=== PATIENT | female | born 1945 | race Caucasian/White ===

== ENCOUNTER 2021-09-18 07:25 | Day surgery (SDC) | payer MEDICARE, OTHER, SELFPAY ==
--- NOTE | 2021-09-18 06:51 | HPE_ITS ---
Assessment and Plan Assessment and plan (1) Nuclear sclerotic cataract of left eye: Status: Chronic Assessment and plan: Assessment: Visually significant cataract of the left eye. Plan: Cataract extraction with lens implantation of the left eye (2) Nuclear sclerotic cataract of right eye: Status: Chronic Assessment and plan: Assessment: Visually significant cataract of the right eye. Plan: Cataract extraction with lens implantation of the right eye History of Present Illness History of Present Illness Chief Complaint: Progressive decreased vision, both eyes Narrative: The patient is a 75-year-old lady with history of progressive decreased vision in both eyes at both distance and near. She particularly has difficulty with glare while driving at night. She notes difficulty seeing distances clearly. S he has had to stop driving due to her glare symptoms. On examination she was noted to have significant bilateral nuclear cataracts. Review of Systems All systems reviewed & are unremarkable except as noted in HPI and below Respiratory Comments: COPD/lung CA, on oxygen PFSH All Active Problems (Updated 09/18/21 @ 07:59 by Shahana Schmidt) Nuclear sclerotic cataract of left eye (Chronic) Nuclear sclerotic cataract of right eye (Chronic) Medical History Anemia Benign hypertension COPD (chronic obstructive pulmonary disease) Hypothyroidism Leg weakness Lung cancer 3.5-4L O2 Malignant neoplasm of lower lobe of left lung Seasonal allergies Surgical History (Updated 09/18/21 @ 07:59 by Shahana Schmidt) History of partial hysterectomy Hx of breast lump removal [place] [facility] [place] Hx of melanoma excision in mouth removed approx 2019 Hx of tonsillectomy Social History Smoking/Tobacco Use Status: Current every day Tobacco Type: cigarettes Tobacco: How many years used: 40 Smoking risk assessment performed?: Yes Alcohol Intake: never Drug use: Never Substance use type: does not use Do you feel safe at home: Yes Do you feel safe in your relationship?: Yes Additional Social history: lives with daughter Meds Allergies and Home Medications Allergies Allergy/AdvReac Type Severity Reaction Status Date / Time No Known Allergies Allergy Unverified 09/18/21 07:59 Home Medications Medication Instructions Recorded Confirmed Type albuterol 90 mcg/actuation aerosol 90 mcg inhalation DIRECTED 09/17/21 09/18/21 History inhaler aspirin 81 mg capsule,delayed 81 mg PO DAILY 09/17/21 09/18/21 History release clopidogrel 75 mg tablet (Plavix) 75 mg PO DAILY 09/17/21 09/18/21 History diphenhydramine HCl 25 mg tablet 25 mg PO DAILY PRN 09/17/21 09/18/21 History ferrous sulfate 325 mg (65 mg 325 mg PO BID 09/17/21 09/18/21 History iron) tablet fluticasone propionate 115 2 puff inhalation DAILY 09/17/21 09/18/21 History mcg-salmeterol 21 mcg/actuation HFA inhaler (Advair HFA) gabapentin 100 mg tablet 100 mg PO DIRECTED 09/17/21 09/18/21 History levothyroxine 112 mcg tablet 112 mcg PO DAILY 09/17/21 09/18/21 History montelukast 10 mg tablet 10 mg PO DAILY 09/17/21 09/18/21 History pantoprazole 40 mg tablet,delayed 40 mg PO DAILY 09/17/21 09/18/21 History release tiotropium bromide 2.5 2.5 mcg inhalation DAILY 09/17/21 09/17/21 History mcg/actuation mist for inhalation (Spiriva Respimat) atorvastatin 20 mg tablet 20 mg PO DAILY 09/18/21 09/18/21 History Exam Eyes Other: Uncorrected visual acuity measures 20/150 right eye, pinhole no improvement. 20/70 left eye, pinhole no improvement. Intraocular pressures 13 right eye, 10 left eye. Extraocular motility is normal. Slit-lamp examination reveals pupils dilating only to 4.5 mm OU. Dense bilateral nuclear cataract are present OU. The remainder of the anterior segment is unremarkable. Funduscopic examination reveals disc cupping of 0.4-0.45 OU. Vessels, macula, peripheral retina and vitreous are normal. Resp Auscultation: clear to auscultation bilaterally Cardio Rate: regular rate Rhythm: regular rhythm
[2021-09-18] MEDS: Tropicam./Phenyleph. (1/2.5%) 5 ML BTL OD ×3 (08:09→08:24)
[2021-09-18 08:11] VITALS: BP 125/59; PULSE 88; RESP 13; TEMP 36.6; O2SAT 96
--- NOTE | 2021-09-18 08:30 | W.ANESPRE ---
General Info Date of Service Date Performed: 09/18/21 Height: 5 ft 1 in Weight: 66.7 kg Body Mass Index (BMI): 27.8 Surgical Procedure: Operation Date: 09/18/21 09:40 Proposed Procedure Side Surgeon p Cataract Extraction with IOL Implant Right Paras Matute MD Meds Allergies and Home Medications Allergies Allergy/AdvReac Type Severity Reaction Status Date / Time No Known Allergies Allergy Unverified 09/18/21 07:59 Home Medication Medication Instructions Recorded albuterol 90 mcg/actuation aerosol 90 mcg inhalation DIRECTED 09/17/21 inhaler aspirin 81 mg capsule,delayed 81 mg PO DAILY 09/17/21 release clopidogrel 75 mg tablet (Plavix) 75 mg PO DAILY 09/17/21 diphenhydramine HCl 25 mg tablet 25 mg PO DAILY PRN 09/17/21 ferrous sulfate 325 mg (65 mg 325 mg PO BID 09/17/21 iron) tablet fluticasone propionate 115 2 puff inhalation DAILY 09/17/21 mcg-salmeterol 21 mcg/actuation HFA inhaler (Advair HFA) gabapentin 100 mg tablet 100 mg PO DIRECTED 09/17/21 levothyroxine 112 mcg tablet 112 mcg PO DAILY 09/17/21 montelukast 10 mg tablet 10 mg PO DAILY 09/17/21 pantoprazole 40 mg tablet,delayed 40 mg PO DAILY 09/17/21 release tiotropium bromide 2.5 2.5 mcg inhalation DAILY 09/17/21 mcg/actuation mist for inhalation (Spiriva Respimat) atorvastatin 20 mg tablet 20 mg PO DAILY 09/18/21 Current Visit Medications: Current Medications Generic Name Dose Route Start Last Admin Trade Name Freq PRN Reason Stop Dose Admin Acetaminophen 1,000 mg 09/18/21 06:00 Acetaminophen 500 Mg Tab PO Q4H PRN PRN Miscellaneous Medication 0 ml 09/18/21 06:00 Prednisolone 1%, Moxifloxacin 0.5%, Nepafenac 0.1% 5ml Btl OD DIRECTED BRYCE Miscellaneous Medication 0 ml 09/18/21 06:00 09/18/21 08:24 Tropicam./Phenyleph. (1/2.5%) 5 Ml Btl OD 1 drp DIRECTED BRYCE Administration Tetracaine HCl 0 ml 09/18/21 06:00 Tetracaine 0.5% 4 Ml Btl OD DIRECTED [facility] Active Problems Active Problems: Problem Status Onset Code Nuclear sclerotic cataract of left eye H25.12 Nuclear sclerotic cataract of right eye H25.11 Medical History Medical History Anemia Benign hypertension COPD (chronic obstructive pulmonary disease) Hypothyroidism Leg weakness Lung cancer 3.5-4L O2 Malignant neoplasm of lower lobe of left lung Seasonal allergies Surgical History Surgical History (Updated 09/18/21 @ 07:59 by Shahana Schmidt) History of partial hysterectomy [place]x of breast lump removal [place] [facility] [place] Hx of melanoma excision in mouth removed approx 2019 Hx of tonsillectomy Tobacco Smoking/Tobacco Use Status: Current every day Tobacco Type: cigarettes Alcohol Alcohol Intake: never Substance Use Substance use: Never Substance use type: does not use Vital Signs and Lab Results Vital Signs Most Recent Vital Signs in EMR: Most Recent Vital Signs Temp Pulse Resp BP Pulse Ox 36.6 C 88 13 125/59 L 96 09/18/21 08:11 09/18/21 08:11 09/18/21 08:11 09/18/21 08:11 09/18/21 08:11 Lab Results Blood Type / Crossmatch: No Data to Display Complete Blood Count: No Data to Display Complete Metabolic Panel: No Data to Display Liver Function Panel: No Data to Display Coagulation Panel: No Data to Display Cardiac Panel: No Data to Display Arterial Blood Gas: No Data to Display Venous Blood Gas: No Data to Display Pancreas Panel: No Data to Display Thyroid Panel: No Data to Display Infectious Disease: No Data to Display Blood Cultures: No Data to Display Toxicology Panel: No Data to Display Anesthesia Assessment and Plan Anesthesia History Personal History: No History of Anesthesia Complications Family History: No Family History of Anesthesia Complications Exercise Tolerance Exercise Tolerance: Metabolic Equivalents>4 Pertinent Negatives Pertinent Negatives: No Symptoms of GERD Cardiac & Pulmonary Exam Cardiac Exam: Normal S1/S2 Heart Sounds Pulmonary Exam: Other (O2 dependent, Diminished) Implantable Cardiac Device Does patient have a Pacemaker or an ICD?: No Airway Exam Known Difficult Airway: No Mallampati Class: 2 Mouth Opening: Normal (> 3cm) Thyromental Distance: Greater than 3 cm Neck Range of Motion: Full ROM Neck Circumference: Normal Teeth Condition: Edentulous ASA Classification ASA Score: ASA 4 Emergency Case?: No NPO Status NPO Status: NPO Clears >2 hours, Solids >8 hours Anesthesia Plan Resuscitation Status: Full Code Anesthesia Technique: MAC Anesthesia Airway Planned: Natural Airway Monitors Used: Standard Monitors
[2021-09-18 08:52] VITALS: BMI 27.8
[2021-09-18] MEDS: Tetracaine 0.5% 4 ML BTL OD (08:56)
[2021-09-18] MEDS: Trypan Blue 0.06% 0.5 ML SYR (09:10)
[2021-09-18] MEDS: Duovisc Viscoelastic System EACH 1 EACH (09:11)
[2021-09-18] MEDS: Balanced Salt Soln.-PLUS 500 ML BAG (09:11)
[2021-09-18] MEDS: Lidocaine 2% Jelly 6 ML SYR (09:13)
[2021-09-18] MEDS: Povidone-Iodine Ophth 30 ML BTL (09:16)
[2021-09-18 09:47] VITALS: BP 98/85; PULSE 85; RESP 20; TEMP 36; O2SAT 100
--- NOTE | 2021-09-18 09:49 | W.PM.DSUDISC ---
Discharge Plan Disposition Patient Disposition: HOME Condition: Good Discharge Details Attending Provider: Paras Matute Primary Care Provider: Jonah Prakash Home Meds and New Rx's Prescriptions: No Action clopidogrel [Plavix] 75 mg Tablet 75 mg PO DAILY aspirin 81 mg Capsule,Delayed Release(Dr/Ec) 81 mg PO DAILY pantoprazole 40 mg Tablet,Delayed Release (Dr/Ec) 40 mg PO DAILY ferrous sulfate 325 mg (65 mg iron) Tablet 325 mg PO BID diphenhydramine HCl 25 mg Tablet 25 mg PO DAILY PRN montelukast 10 mg Tablet 10 mg PO DAILY levothyroxine 112 mcg Tablet 112 mcg PO DAILY gabapentin 100 mg Tablet 100 mg PO DIRECTED Advair HFA 115-21 mcg/actuation Hfa Aerosol Inhaler 2 puff INHALATION DAILY Spiriva Respimat 2.5 mcg/actuation Mist 2.5 mcg INHALATION DAILY Ventolin 90 mcg/actuation Aerosol 90 mcg INHALATION DIRECTED atorvastatin 20 mg Tablet 20 mg PO DAILY Discharge Instructions Stand Alone Forms: Post-op Topical Cataract, Cyndy Segura (DSU) Discharge Orders Discharge Orders: Discharge Order (Routine); Ordered 09/18/21 Ordered By: Paras Matute DS: Diagnosis Discharge Diagnosis (1) Nuclear sclerotic cataract of left eye: Status: Resolved
--- NOTE | 2021-09-18 09:50 | ROE_ITS ---
Date of service: 09/18/21 Time of Service: 09:50 Operative Note Operative Note DATE OF PROCEDURE: 09/18/21 PRE-OP DIAGNOSIS: Dense nuclear cataract, left eye Poor red reflex, left eye Poorly dilating pupil left eye PROCEDURE: Cataract extraction using phacoemulsification with intraocular lens implant, left eye, with pupillary dilation using Malyugin Ring and capsular staining using Vision Blue SURGEON: Paras Matute ANESTHESIA TYPE: Local By Surgeon and MAC Refer to Anesthesia Record ESTIMATED BLOOD LOSS: 0 PATHOLOGY: none sent COMPLICATIONS: None Patient was transported to: same day Patient's condition: stable Implants: [employer] / [employer] Tecnis [id number] Indications: Progressive decreased vision due to cataract, left eye Procedure Description: CATARACT SURGERY OPERATIVE REPORT PREOPERATIVE DIAGNOSIS: 1. Dense nuclear cataract, left eye 2. Poorly dilating pupil, left eye 3. Poor red reflex, left eye POSTOPERATIVE DIAGNOSIS: Same OPERATION: 1. Cataract extraction using phacoemulsification with posterior chamber intraocular lens implant, left eye. 2. Pupillary dilation and iris stabilization using Malyugin Ring 3. Capsular staining with VIsion Blue IOL: IOL Lockstitch Front Edge Tape Sewer/Model: [employer] / DARIO Tecnis [id number] IOL Power: + 22.5 diopters IOL Serial Number: [id number] Optic Diameter: 6.0mm Haptic/Overall Diameter: 13.0mm PHACO INFO: Ravinder INWEBTURE Limitedurion Vision System with OZil and Active Fluidics Cumulative Dispersed Energy (CDE): 29.5 seconds SURGEON: Paras Matute MD, MILADY ANESTHESIA: Monitored Anesthesia Care (MAC), with local sub-tenon's anesthetic infiltration COMPLICATIONS: None SPECIMENS: None INDICATIONS FOR PROCEDURE: The patient is a 76-year-old lady with history of diminished visual acuity in both eyes secondary to the development of cataracts. Indeed, on examination, she was noted to have dense bilateral nuclear cataracts, right eye worse than left. The option of cataract surgery was offered to the patient and she wished to proceed, and desired to have her left eye done first. PROCEDURE: The correct surgical eye was identified and marked as the left eye and the pupil was dilated in the preoperative area using mydriatics, cycloplegics, and NSAIDS (except in aspirin allergic patients). The dilated pupil size was 4.0 mm. She elected to proceed without sedation. The patient was brought to the operating room where cardiopulmonary monitoring was instituted and surgical time-out was performed, confirming the correct operative eye and IOL power. Topical anesthesia was administered and ophthalmic povidone-iodine 5% was instilled into the conjunctival fornices. Lidocaine gel was applied to the cornea and the jordan-ocular area was prepped with Betadine 10% solution and draped in the usual sterile fashion for intraocular surgery, including an aperture drape. A Tegaderm transparent film dressing was cut in half and used to cover the lashes and lid margins. Care was taken to sequester the lashes and lid margins under the Tegaderm dressing. A lid speculum was placed between the lids of the operative eye and the Maryjane-Margo operating microscope was maneuvered into position. Jesús scissors were then used to make a conjunctival buttonhole approximately 6mm posterior to the limbus in the inferonasal quadrant. Blunt dissection was carried out to expose bare sclera, and a blunt-tipped sub-tenon?s anesthesia cannula was introduced and passed posteriorly along the globe where non- preserved plain lidocaine was injected into posterior sub-Tenon?s space. A sideport knife was used to make a paracentesis port superiorly/sup eriortemporally. Intraocular phenylephrine/lidocaine was injected into the anterior chamber. Air was then injected into anterior chamber, followed by Vision Blue, which was painted over the anterior capsule and then irrigated out with BSS. The anterior chamber was then filled with Viscoat viscoelastic. A 2.4mm keratome knife was used to create a half-thickness groove at the limbus and then to construct a three-plane near-clear corneal tunnel extending 2.0mm into clear cornea temporally. A 7.0 mm Malyugin Ring was then inserted into the pupillary space and engaged with the Kuglen hook. A flap was raised on the anterior capsule and capsulorhexis forceps were used to complete a continuous curvilinear capsulorhexis of 5.0 mm. Significant zonular laxity was noted. Balanced salt solution was then used to perform cortical cleaving hydrodissection and nuclear hydrodelineation until the lens could be freely rotated within the capsular bag. The lens nucleus was then disassembled and removed within the capsular bag and iris plane using phacoemulsification. Nuclear splitters were used to aid in cracking the dense nucleus into 2 heminuclei. Residual cortical material was removed using the 45-degree angled silicone I/A tip with 0.3mm port. The posterior capsule was carefully polished to remove as much residual lens epithelial cells as safely possible. The underside of the anterior capsule was extensively polished as well. The capsular bag was then inflated and the anterior chamber deepened with viscoelastic. A Morcher Type 15 capsule tension ring was inserted into the capsular bag without difficulty. The lens implant described above was inserted into the capsular bag using the DARIO [place] Injector. A Kuglen hook was used to dial the IOL into position. The Malyugin Ring was removed in the reverse order of its insertion. Residual viscoelastic was then removed first from posterior to the IOL, then from the anterior chamber using the I/A handpiece. The lens implant was noted to center nicely within the capsular bag. The incisions were stromally hydrated, and the anterior chamber was reformed using BSS. Then 0.5cc of moxifloxacin 1.0mg/ml were injected into the capsular bag and anterior chamber. The incisions were checked with a Weck spear and found to be secure. Several drops of ophthalmic povidone-iodine 5% were then applied to the eye followed by two drops of Imprimis combination prednisolone/moxifloxacin/nepafenac solution. The drapes were removed and a clear plastic protective eye shield was placed over the eye. The patient was then returned to Same Day Surgery in stable condition.
--- NOTE | 2021-09-18 10:19 | W.ANESPOSTOP ---
Postoperative Evaluation Date, Time and Location Date Performed: 09/18/21 Time Performed: 09:52 Patient Location: Day Surgery Unit Vital Signs Most Recent Imported Vital Signs: Most Recent Vital Signs Temp Pulse Resp BP Pulse Ox 36 C L 85 20 98/85 L 100 09/18/21 09:47 09/18/21 09:47 09/18/21 09:47 09/18/21 09:47 09/18/21 09:47 Pain Score Most Recent Pain Score: Most Recent Pain Score Pain Level 0 09/18/21 09:47 Assessment Mental Status: Awake (Alert & Oriented to Patient Baseline) Airway and Respiratory Function: Patent airway with normal (patient baseline) respiratory exam Cardiovascular Function: Hemodynamically Stable Hydration Status: Adequately Hydrated Nausea & Vomiting: No Nausea or Vomiting Pain: Pt. Denies Any Pain Peripheral Nerve Block: Patient did not receive a nerve block
== END 2021-09-18 10:58 | disposition home or self-care (01) ==
PROVIDERS: PCP Orthopaedic Surgery Foot and Ankle Surgery; Visit Provider Ophthalmology
PROC: (CPT 66982; principal; 2021-09-18 09:30)
DX: H25.12 Age-related nuclear cataract, left eye (principal); H57.03 Miosis; E03.9 Hypothyroidism, unspecified; J44.9 Chronic obstructive pulmonary disease, unspecified
CPT/HCPCS: 66982; V2632

== ENCOUNTER 2022-07-12 10:12 | Day surgery (SDC) | payer MEDICARE, SELFPAY ==
[2022-07-12] MEDS: Tropicam./Phenyleph. (1/2.5%) 5 ML BTL OD ×3 (10:51→11:12)
[2022-07-12 10:57] VITALS: BP 120/61; PULSE 73; RESP 16; TEMP 36.4; O2SAT 97
--- NOTE | 2022-07-12 11:09 | W.ANESPRE ---
General Info Date of Service Date Performed: 07/12/22 Height: 5 ft 1.5 in Weight: 64.1 kg Body Mass Index (BMI): 26.2 Surgical Procedure: Operation Date: 07/12/22 13:40 Proposed Procedure Side Surgeon p Cataract Extraction with IOL Implant Right Paras Matute MD Meds Allergies and Home Medications Allergies Allergy/AdvReac Type Severity Reaction Status Date / Time No Known Allergies Allergy Unverified 07/12/22 10:53 Home Medication Medication Instructions Recorded aspirin 81 mg capsule,delayed 81 mg PO DAILY 09/17/21 release clopidogrel 75 mg tablet (Plavix) 75 mg PO DAILY 09/17/21 diphenhydramine HCl 25 mg tablet 25 mg PO DAILY PRN 09/17/21 ferrous sulfate 325 mg (65 mg 325 mg PO BID 09/17/21 iron) tablet fluticasone propionate 115 2 puff inhalation DAILY 09/17/21 mcg-salmeterol 21 mcg/actuation HFA inhaler (Advair HFA) levothyroxine 112 mcg tablet 112 mcg PO DAILY 09/17/21 montelukast 10 mg tablet 10 mg PO DAILY 09/17/21 pantoprazole 40 mg tablet,delayed 40 mg PO DAILY 09/17/21 release tiotropium bromide 2.5 2.5 mcg inhalation DAILY 09/17/21 mcg/actuation mist for inhalation (Spiriva Respimat) atorvastatin 20 mg tablet 20 mg PO DAILY 09/18/21 L.acidoph, paracasei,B. lactis 10 cell PO 12/10/21 billion cell capsule (Digestive Advantage Advanced Probiotic) albuterol 90 mcg/actuation aerosol 90 mcg inhalation Q4H PRN 12/10/21 inhaler amlodipine 2.5 mg tablet 5 mg PO DAILY 12/10/21 ascorbate calcium (vitamin C) 500 500 mg PO BID 12/10/21 mg tablet dicyclomine 10 mg capsule 10 mg PO .Q3-4H PRN 12/10/21 gabapentin 100 mg tablet 200 mg PO DIRECTED 12/10/21 prednisolone acetate (PF) 1 % eye 1 drp ophthalmic (eye) .COMPLEX 12/10/21 drops,suspension Current Visit Medications: Current Medications Generic Name Dose Route Start Last Admin Trade Name Freq PRN Reason Stop Dose Admin Acetaminophen 1,000 mg 07/12/22 06:00 Acetaminophen 500 Mg Tab PO Q4H PRN PRN Miscellaneous Medication 0 ml 07/12/22 06:00 07/12/22 10:56 Tropicam./Phenyleph. (1/2.5%) 5 Ml Btl OD 1 drp DIRECTED BRYCE Administration Miscellaneous Medication 0 ml 07/12/22 06:00 Prednisolone 1%, Moxifloxacin 0.5%, Nepafenac 0.1% 5ml Btl OD DIRECTED BRYCE Tetracaine HCl 0 ml 07/12/22 06:00 Tetracaine 0.5% 4 Ml Btl OD DIRECTED BRYCE PFSH Active Problems Active Problems: Problem Status Onset Code Nuclear sclerotic cataract of left eye H25.12 Nuclear sclerotic cataract of right eye H25.11 Medical History Medical History Abdominal pain in female Amblyopia Anemia Asteatotic eczema Benign essential hypertension Benign hypertension Bilateral carpal tunnel syndrome Cataract Chronic back pain COPD (chronic obstructive pulmonary disease) Coronary arteriosclerosis Diverticulosis of colon Facial nerve sensory disorder GERD (gastroesophageal reflux disease) Hematochezia History of blood in urine History of IBS History of neck pain Hx of chronic obstructive lung disease Hyperglycemia Hyperlipidemia Hyponatremia Hypothyroidism Leg weakness Lung cancer 3.5-4L O2 Macromastia Malignant carcinoid tumor of lung Malignant neoplasm of lower lobe of left lung Neuropathy Non-allergic eosinophilic rhinitis Overactive bladder Peripheral vascular disease Seasonal allergies Smoker Vitamin D deficiency Medical History Comments:: Per patient has narrow trach. Has mass in throat will be going in for EGD/colo surgery in August. Surgical History Surgical History H/O angioplasty History of cataract surgery History of partial hysterectomy History of thyroidectomy H[place] of breast lump removal [place] [facility] [place] Hx of melanoma excision in mouth removed approx 2019 Hx of tonsillectomy Tobacco Smoking/Tobacco Use Status: Current every day Tobacco Type: cigarettes Alcohol Alcohol Intake: never Substance Use Substance use: Never Substance use type: does not use Vital Signs and Lab Results Vital Signs Most Recent Vital Signs in EMR: Most Recent Vital Signs Temp Pulse Resp BP Pulse Ox 36.4 C L 73 16 120/61 97 07/12/22 10:57 07/12/22 10:57 07/12/22 10:57 07/12/22 10:57 07/12/22 10:57 Lab Results Blood Type / Crossmatch: No Data to Display Complete Blood Count: No Data to Display Complete Metabolic Panel: No Data to Display Liver Function Panel: No Data to Display Coagulation Panel: No Data to Display Cardiac Panel: No Data to Display Arterial Blood Gas: No Data to Display Venous Blood Gas: No Data to Display Pancreas Panel: No Data to Display Thyroid Panel: No Data to Display Infectious Disease: No Data to Display Blood Cultures: No Data to Display Toxicology Panel: No Data to Display Anesthesia Assessment and Plan Anesthesia History Personal History: No History of Anesthesia Complications Family History: No Family History of Anesthesia Complications Exercise Tolerance Exercise Tolerance: Metabolic Equivalents<4 Pertinent Negatives Pertinent Negatives: No Major Cardiovascular Symptoms or Complaints Cardiac & Pulmonary Exam Cardiac Exam: Normal S1/S2 Heart Sounds Pulmonary Exam: Wheezing Present (exp wheeze) Cardiac and Pulmonary Comment:: Home O2 3.5 L Implantable Cardiac Device Does patient have a Pacemaker or an ICD?: No Airway Exam Known Difficult Airway: No Mallampati Class: 2 Mouth Opening: Normal (> 3cm) Thyromental Distance: Greater than 3 cm Neck Range of Motion: Full ROM Neck Circumference: Normal Teeth Condition: Edentulous ASA Classification ASA Score: ASA 3 Emergency Case?: No NPO Status NPO Status: NPO Clears >2 hours, Solids >8 hours Anesthesia Plan Resuscitation Status: Full Code Anesthesia Technique: MAC Anesthesia Airway Planned: Natural Airway Monitors Used: Standard Monitors
[2022-07-12 11:11] VITALS: BMI 26.2
[2022-07-12] MEDS: Tetracaine 0.5% 4 ML BTL OD (11:38)
[2022-07-12] MEDS: Povidone-Iodine Ophth 30 ML BTL (11:38)
[2022-07-12] MEDS: Balanced Salt Soln.-PLUS 500 ML BAG (11:46)
[2022-07-12] MEDS: Duovisc Viscoelastic System EACH 1 EACH (11:46)
[2022-07-12] MEDS: Lidocaine 1% Pres-Free 5 ML VIAL (11:47)
[2022-07-12] MEDS: Phenylephrine/Lidocaine (15/10) MG/ML 1 ML VIAL (11:48)
[2022-07-12] MEDS: Trypan Blue 0.06% 0.5 ML SYR (11:48)
[2022-07-12 12:16] VITALS: BP 116/56; PULSE 80; RESP 18; TEMP 36.1; O2SAT 98
--- NOTE | 2022-07-12 12:18 | W.PM.DSUDISC ---
Date of service: 07/12/22 Time of Service: 12:18 Discharge Plan Disposition Patient Disposition: Home Discharge Details Attending Provider: Paras Matute Primary Care Provider: [place] Johnson Home Meds and New Rx's Prescriptions: No Action amlodipine 2.5 mg tablet 5 mg PO DAILY dicyclomine 10 mg capsule 10 mg PO .Q3-4H PRN gabapentin 100 mg tablet 200 mg PO DIRECTED Rx Instructions: 1 capsule by mouth in the morning and 2 capsules at bedtime prednisolone acetate (PF) 1 % drops,suspension 1 drp ophthalmic (eye) .COMPLEX Rx Instructions: 1 drp into the eye(s); Digestive Advantage Advanced 10 billion cell capsule 1 PO albuterol 90 mcg/actuation aerosol 90 mcg INHALATION Q4H PRN Rx Instructions: inhale 2 puffs by mouth every 4 hours as needed for wheezing ascorbate calcium (vitamin C) 500 mg tablet 500 mg PO BID clopidogrel [Plavix] 75 mg Tablet 75 mg PO HS aspirin 81 mg Capsule,Delayed Release(Dr/Ec) 81 mg PO DAILY pantoprazole 40 mg Tablet,Delayed Release (Dr/Ec) 40 mg PO DAILY ferrous sulfate 325 mg (65 mg iron) Tablet 325 mg PO BID diphenhydramine HCl 25 mg Tablet 25 mg PO DAILY PRN montelukast 10 mg Tablet 10 mg PO DAILY levothyroxine 112 mcg Tablet 112 mcg PO DAILY fluticasone propion-salmeterol [Advair HFA] 115-21 mcg/actuation Hfa Aerosol Inhaler 2 puff INHALATION DAILY Spiriva Respimat 2.5 mcg/actuation Mist 2.5 mcg INHALATION DAILY atorvastatin 20 mg Tablet 20 mg PO DAILY Discharge Instructions Stand Alone Forms: Post-op Topical Cataract, Cyndy Segura (DSU) Discharge Orders Discharge Orders: Discharge Order (Routine); Ordered 07/12/22 Ordered By: Paras Matute DS: Diagnosis Discharge Diagnosis (1) Nuclear sclerotic cataract of right eye: Status: Resolved
--- NOTE | 2022-07-12 12:19 | W.PM.OP ---
Date of service: 07/12/22 Time of Service: 12:19 Operative Note Operative Note DATE OF PROCEDURE: 07/12/22 PRE-OP DIAGNOSIS: Dense nuclear cataract, right eye POST-OP DIAGNOSIS: same PROCEDURE: Cataract extraction using phacoemulsification with intraocular lens implant, right eye SURGEON: Paras Matute ANESTHESIA TYPE: Local By Surgeon and MAC Refer to Anesthesia Record ESTIMATED BLOOD LOSS: 0 PATHOLOGY: none sent COMPLICATIONS: None Patient was transported to: same day Patient's condition: stable Implants: [employer] Eyhance DIB00 Indications: Progressive visual loss due to cataract, right eye Procedure Description: CATARACT SURGERY OPERATIVE REPORT PREOPERATIVE DIAGNOSIS: 1. Dense nuclear cataract, right eye POSTOPERATIVE DIAGNOSIS: Same OPERATION: 1. Cataract extraction using phacoemulsification with posterior chamber intraocular lens implant, right eye. IOL: IOL Deputy Director Of Public [employer]/Model: [employer] Tecnis Eyhance DIB00 IOL Power: + 24.5 diopters IOL Serial Number: [id number] Optic Diameter: 6.0mm Haptic/Overall Diameter: 13.0mm PHACO INFO: [employer] Vision System with OZil and Active Fluidics Cumulative Dispersed Energy (CDE): 28.75 seconds SURGEON: Paras Matute MD, MILADY ANESTHESIA: Monitored Anesthesia Care (MAC), with local sub-tenon's anesthetic infiltration COMPLICATIONS: None SPECIMENS: None INDICATIONS FOR PROCEDURE: The patient is a 76-year-old lady with history of diminished visual acuity in her right eye secondary to the development of dense nuclear cataract. She previously underwent cataract surgery in the left eye in August,. In the left eye, she was noted to have a very dense cataract with severe generalized zonular laxity, requiring the use of a capsular tension ring, and a Malyugin ring for surgery. She now presents for cataract surgery of the right eye. PROCEDURE: The correct surgical eye was identified and marked as the right eye and the pupil was dilated in the preoperative area using mydriatics and cycloplegics. The dilated pupil size was 6.0 mm. . The patient elected to proceed without oral sedation. The patient was brought to the operating room where cardiopulmonary monitoring was instituted and surgical time-out was performed, confirming the correct operative eye and IOL power. Topical anesthesia was administered and ophthalmic povidone-iodine 5% was instilled into the conjunctival fornices. Lidocaine gel was applied to the cornea and the jordan-ocular area was prepped with Betadine 10% solution and draped in the usual sterile fashion for intraocular surgery, including an aperture drape. A Tegaderm transparent film dressing was cut in half and used to cover the lashes and lid margins. Care was taken to sequester the lashes and lid margins under the Tegaderm dressing. A lid speculum was placed between the lids of the operative eye and the Ravinder [employer] Revalia operating microscope was maneuvered into position. Jesús scissors were then used to make a conjunctival buttonhole approximately 6mm posterior to the limbus in the inferonasal quadrant. Blunt dissection was carried out to expose bare sclera, and a blunt-tipped sub-tenon?s anesthesia cannula was introduced and passed posteriorly along the globe where non-preserved plain lidocaine was injected into posterior sub-Tenon?s space. A sideport knife was used to make a paracentesis port inferotemporally. VisionBlue was injected into the anterior chamber and allowed to sit for 12 to 15 seconds. Intraocular phenylephrine/lidocaine was injected into the anterior chamber. The anterior chamber was filled with viscoelastic. Viscoat was used initially to protect the corneal endothelium. A keratome knife was used to construct a 2-plane near-clear corneal tunnel extending 2.0mm into clear cornea superiortemporally. A flap was raised on the anterior capsule and capsulorhexis forceps were used to complete a continuous curvilinear capsulorhexis of 5.0 mm. The capsule was noted to be quite thin with mild to moderate generalized zonular laxity. Balanced salt solution was then used to perform cortical cleaving hydrodissection and nuclear hydrodelineation until the lens could be freely rotated within the capsular bag. The lens nucleus was then disassembled and removed within the capsular bag and iris plane using phacoemulsification. The lens was noted to be quite dense. A single deep central groove was sculpted and the nucleus rotated 180 degrees, where the groove was continued. The anterior chamber was filled with Viscoat and nuclear splitters were then used to crack the lens into 2 halves. Each half was then chopped into multiple smaller fragments which were carefully removed at the iris plane. Residual cortical material was removed using the I/A handpiece. The posterior capsule was carefully polished to remove as much residual lens epithelial cells as safely possible. The capsular bag was then inflated and the anterior chamber deepened with viscoelastic. The lens implant described above was inserted into the capsular bag using the [employer] Stewart pre-loaded injector. A Kuglen hook was used to dial the IOL into position. Residual viscoelastic was then removed first from posterior to the IOL, then from the anterior chamber using the I/A handpiece. The lens implant was noted to center nicely within the capsular bag. The incisions were stromally hydrated, and the anterior chamber was reformed using BSS. Then 0.5cc of moxifloxacin 1.0mg/ml were injected into the capsular bag and anterior chamber. The incisions were checked with a Weck spear and found to be secure. Several drops of ophthalmic povidone-iodine 5% were then applied to the eye followed by two drops of Imprimis combination prednisolone/moxifloxacin/nepafenac solution. The drapes were removed and a clear plastic protective eye shield was placed over the eye. The patient was then returned to [facility] Day Surgery in stable condition.
--- NOTE | 2022-07-12 12:30 | W.ANESPOSTOP ---
Postoperative Evaluation Date, Time and Location Date Performed: 07/12/22 Time Performed: 12:31 Patient Location: Day Surgery Unit Vital Signs Most Recent Imported Vital Signs: Most Recent Vital Signs Temp Pulse Resp BP Pulse Ox 36.1 C L 80 18 116/56 L 98 07/12/22 12:16 07/12/22 12:16 07/12/22 12:16 07/12/22 12:16 07/12/22 12:16 Pain Score Most Recent Pain Score: Most Recent Pain Score Pain Level 0 07/12/22 12:16 Assessment Mental Status: Awake (Alert & Oriented to Patient Baseline) Airway and Respiratory Function: Patent airway with normal (patient baseline) respiratory exam Cardiovascular Function: Hemodynamically Stable Hydration Status: Adequately Hydrated Nausea & Vomiting: No Nausea or Vomiting Pain: Pt. Denies Any Pain Peripheral Nerve Block: Patient did not receive a nerve block
== END 2022-07-12 12:42 | disposition home or self-care (01) ==
LOC: SUR 10:12
PROVIDERS: PCP Nurse Practitioner Acute Care; Visit Provider Ophthalmology
PROC: (CPT 66984; principal; 2022-07-12 13:30)
DX: H25.11 Age-related nuclear cataract, right eye (principal); K21.00 Gastro-esophageal reflux disease with esophagitis, without bleeding; I10 Essential (primary) hypertension; F17.210 Nicotine dependence, cigarettes, uncomplicated; Z98.42 Cataract extraction status, left eye
CPT/HCPCS: 66984; V2632